=== PATIENT | female | born 2000 | race African-American/Black ===

== ENCOUNTER 2024-05-29 13:13 | Emergency (ER) | payer MEDICAID ==
[~2024-05-29] VITALS: Ht 157.5 cm; Wt 81.0 kg
[2024-05-29 13:18] VITALS: O2SAT 99
[2024-05-29] MEDS ORDERED: IBUP-2029 MT (14:47)
[2024-05-29 15:06] VITALS: BP 123/78; PULSE 80; RESP 18; TEMP 98.1
== END 2024-05-29 15:06 | disposition home or self-care (01) ==
LOC: ER 13:13
DX: J20.9 Acute bronchitis, unspecified (principal)
CPT/HCPCS: 71046; 99283